=== PATIENT | female | born 1985 | race Caucasian/White ===

== ENCOUNTER 2018-01-23 11:18 | Emergency (ER) | payer MEDICARE, OTHER ==
[~2018-01-23] VITALS: Ht 172.7 cm; Wt 77.2 kg
[~2018-01-23 11:18] MED LIST: ZITHROMAX250 MG PO
[2018-01-23] MEDS ORDERED: BUPROPION HCL150 M1 PO (11:34)
[2018-01-23] MEDS ORDERED: TRAZODONE50 MG PO (11:35)
[2018-01-23] MEDS ORDERED: DELTASONE20 MG PO (12:39)
[2018-01-23] MEDS ORDERED: CLEOCIN150 MG PO (12:39)
[2018-01-23 12:45] VITALS: BP 121/67
== END 2018-01-23 12:45 | disposition home or self-care (01) ==
LOC: ED 11:18
DX: J02.9 Acute pharyngitis, unspecified (principal); F41.9 Anxiety disorder, unspecified; F32.9 Major depressive disorder, single episode, unspecified

== ENCOUNTER 2018-04-02 11:12 | Emergency (ER) | payer OTHER ==
[~2018-04-02] VITALS: Ht 172.7 cm; Wt 72.7 kg
[~2018-04-02 11:12] MED LIST changes: +BUPROPION HCL150 M1 PO; +CLEOCIN150 MG PO; +DELTASONE20 MG PO; +TRAZODONE50 MG PO
[2018-04-02 11:41] LABS: URINE BILIRUBIN - DIPSTICK NEGATIVE (NEGATIVE); URINE BLOOD DIPSTICK TRACE-INTACT (NEGATIVE); URINE COLOR YELLOW; URINE GLUCOSE - DIPSTICK NEGATIVE (NEGATIVE); URINE KETONE NEGATIVE (NEGATIVE); URINE LEUK ESTERASE TRACE (NEGATIVE); URINE NITRITE - DIPSTICK NEGATIVE (Negative); URINE PH 5.5 (4.5-8.0); URINE PROTEIN - DIPSTICK NEGATIVE (NEG-TRACE); URINE SPECIFIC GRAVITY <=1.005; URINE UROBILINOGEN - DIPSTICK 0.2 E.U./dL (0.2)
[2018-04-02 11:42] LABS: URINE CLARITY CLEAR
[2018-04-02] MEDS ORDERED: HYDROXYZ HCL25 MG PO (11:49)
[2018-04-02] MEDS ORDERED: DOXYCYC MONO100 M1 PO (11:55)
[2018-04-02] MEDS ORDERED: BETAMETH VAL0.1 % TOP (11:57)
[2018-04-02 12:00] VITALS: BP 129/79
[2018-04-02] MEDS ORDERED: PYRIDIUM200 MG PO (12:03)
== END 2018-04-02 12:00 | disposition home or self-care (01) | DRG 690 ==
LOC: ED 11:12
PROVIDERS: Family Medicine
DX: N39.0 Urinary tract infection, site not specified (principal); L30.9 Dermatitis, unspecified

== ENCOUNTER 2018-07-03 12:21 | Emergency (ER) | payer MEDICARE, OTHER ==
[~2018-07-03] VITALS: Ht 172.7 cm; Wt 93.0 kg
[~2018-07-03 12:21] MED LIST changes: +BETAMETH VAL0.1 % TOP; +DOXYCYC MONO100 M1 PO; +HYDROXYZ HCL25 MG PO; +PYRIDIUM200 MG PO
[2018-07-03 13:07] LABS: URINE BILIRUBIN - DIPSTICK NEGATIVE (NEGATIVE); URINE BLOOD DIPSTICK NEGATIVE (NEGATIVE); URINE CLARITY CLEAR; URINE COLOR YELLOW; URINE GLUCOSE - DIPSTICK NEGATIVE (NEGATIVE); URINE KETONE NEGATIVE (NEGATIVE); URINE LEUK ESTERASE NEGATIVE (NEGATIVE); URINE NITRITE - DIPSTICK NEGATIVE (Negative); URINE PH 5.5 (4.5-8.0); URINE PROTEIN - DIPSTICK NEGATIVE (NEG-TRACE); URINE SPECIFIC GRAVITY 1.025; URINE UROBILINOGEN - DIPSTICK 0.2 E.U./dL (0.2)
[2018-07-03] MEDS ORDERED: CLEOCIN300 MG PO (13:22)
[2018-07-03 13:34] VITALS: BP 111/75
== END 2018-07-03 13:34 | disposition home or self-care (01) ==
LOC: ED 12:21
PROVIDERS: Emergency Medicine
DX: J02.0 Streptococcal pharyngitis (principal); F41.9 Anxiety disorder, unspecified; F32.9 Major depressive disorder, single episode, unspecified; Z87.440 Personal history of urinary (tract) infections

== ENCOUNTER 2018-12-17 12:55 | Emergency (ER) | payer MEDICARE, OTHER ==
[~2018-12-17] VITALS: Ht 175.3 cm; Wt 77.0 kg
[~2018-12-17 12:55] MED LIST changes: +CLEOCIN300 MG PO
[2018-12-17] MEDS ORDERED: CORTISPORIN OTI10 M2 AD (13:16)
[2018-12-17] MEDS ORDERED: ZITHROMAX250 MG PO (13:16)
[2018-12-17 13:19] VITALS: BP 105/66
== END 2018-12-17 13:19 | disposition home or self-care (01) ==
LOC: ED 12:55
DX: H66.91 Otitis media, unspecified, right ear (principal); H60.91 Unspecified otitis externa, right ear; F41.9 Anxiety disorder, unspecified; F32.9 Major depressive disorder, single episode, unspecified